=== PATIENT | female | born 1955 | race Hispanic/Latino ===

== ENCOUNTER → 2017-03-28 | Outpatient (CLI) | payer BC ==
--- NOTE | 2017-03-29 14:43 | MAM ---
EXAM DESCRIPTION: 3D Screening BILATERAL : Digital Mammography. CLINICAL HISTORY: 61 years Female SCREENING . No complaints. Sister with breast cancer. Postmenopausal. No HRT. COMPARISON: 2-D digital screening bilateral studies 03/29/2016 and 03/05/2015. Report from prior examination also reviewed. TECHNIQUE: Bilateral CC and MLO projection full-field images, 3-D tomosynthesis digital mammographic technique. Also bilateral synthesized CC/ MLO full-field images. CAD not utilized. FINDINGS: The breast parenchymal density pattern is: Scattered areas of fibroglandular density. No skin thickening or nipple retraction bilateral axillary lymph nodes. Bilateral intramammary lymph nodes. Bilateral solitary microcalcifications. No focal, stellate mass or density, focal asymmetry , and no suspicious microcalcifications bilaterally Stable mammograms compared to prior study, February 2015, taking into account differences in mammographic technique IMPRESSION: BI-RADS CATEGORY: 2 - BENIGN FINDINGS. FOLLOW UP: Routine digital bilateral screening, one year interval from March 2017 Written communication explaining the IMPRESSION and follow-up, will be mailed to the patient and referring health care provider. According to the [employer], yearly mammograms are recommended starting at age 40 and continuing as long as a woman is in good health. Any breast change noted on a breast self-exam should be reported promptly to the patient's healthcare provider. Breast MRI is recommended for women with an approximately 20-25% or greater lifetime risk of breast cancer, including women with a strong family history of breast or ovarian cancer and women who have been treated for Hodgkin's disease. A negative mammographic report should not delay tissue diagnosis in patients with significant clinical history or physical findings. Extremely dense breast tissue limits the sensitivity of digital mammography. Electronically signed by: Kvng Haile MD 03/29/2017 2:42 PM CDT
== END | disposition home or self-care (01) ==
LOC: MAMMO 15:08
PROVIDERS: ATTEND Obstetrics & Gynecology
DX: Z12.31 Encounter for screening mammogram for malignant neoplasm of breast (principal)
CPT/HCPCS: 77063; G0202

== ENCOUNTER → 2018-04-06 | Outpatient (CLI) | payer BC ==
--- NOTE | 2018-04-07 16:08 | MAM ---
EXAM DESCRIPTION: 3D Screening BILATERAL : Digital Mammography. CLINICAL HISTORY: 62 years Female SCREEN . No complaints or personal history of breast cancer. Sister with breast cancer. Postmenopausal 17 years. No childbirth. Taking HRT 5 or more years ago. Lifetime risk of developing breast cancer (Tyrer-Cuzick model)(%): 11.7. COMPARISON: Bilateral screening digital breast tomosynthesis 03/28/2017. TECHNIQUE: Bilateral CC and MLO projection full-field images, Digital tomosynthesis mammographic technique. Bilateral digital 2-D full-field MLO images. CAD not utilized. FINDINGS: The breast parenchymal density pattern is: Scattered areas of fibroglandular density. No skin thickening or nipple retraction. Bilateral axillary and intramammary lymph nodes. No new focal, stellate mass or density, focal asymmetry , and no suspicious microcalcifications bilaterally. Stable mammograms compared to prior study. IMPRESSION: Benign exam. BIRAD CATEGORY: 2 BENIGN FINDINGS. RECOMMENDATIONS: FOLLOW UP: Routine digital bilateral screening, one year interval from March 2018. Written communication explaining the IMPRESSION and follow-up, will be mailed to the patient and referring health care provider. According to the [employer], yearly mammograms are recommended starting at age 40 and continuing as long as a woman is in good health. Any breast change noted on a breast self-exam should be reported promptly to the patient's healthcare provider. Breast MRI is recommended for women with an approximately 20-25% or greater lifetime risk of breast cancer, including women with a strong family history of breast or ovarian cancer and women who have been treated for Hodgkin's disease. A negative mammographic report should not delay tissue diagnosis in patients with significant clinical history or physical findings. Extremely dense breast tissue limits the sensitivity of digital mammography. Electronically signed by: Kvng Haile MD 04/07/2018 4:07 PM CDT
== END ==
LOC: MAMMO 10:00
PROVIDERS: ATTEND Obstetrics & Gynecology
DX: Z12.31 Encounter for screening mammogram for malignant neoplasm of breast (principal)

== ENCOUNTER → 2018-09-28 | Outpatient (CLI) | payer BC | LOC: GMAJS 10:48 | PROVIDERS: ATTEND Physician Assistant | DX: G47.62 Sleep related leg cramps (principal); R25.2 Cramp and spasm ==

== ENCOUNTER → 2019-03-02 | Outpatient (CLI) | payer BC | LOC: GMAM 10:31 | PROVIDERS: ATTEND Family Medicine | DX: R94.5 Abnormal results of liver function studies (principal) ==

== ENCOUNTER → 2019-04-11 | Outpatient (CLI) | payer BC ==
--- NOTE | 2019-04-13 15:58 | MAM ---
EXAM DESCRIPTION: 3D Screening BILATERAL : Digital Mammography. CLINICAL HISTORY: 63 years Female ANNUAL SCREENING . No complaints or personal history of breast cancer. Female sibling with breast cancer. Menarche age 15. No childbirth. Postmenopausal 15+ years. HRT yes but unknown duration.. Lifetime risk of developing breast cancer (Tyrer-Cuzick model)(%): 8.4. COMPARISON: Bilateral screening digital breast tomosynthesis 06 April 2018 and 28 March 2017. TECHNIQUE: Bilateral CC and MLO projection full-field images, digital tomosynthesis mammographic technique. Bilateral digital 2-D full-field MLO images. CAD not available for tomosynthesis or 2-D images. FINDINGS: The breast parenchymal density pattern is: Scattered areas of fibroglandular density. No skin thickening or nipple retraction. Left axillary lymph nodes. Bilateral solitary microcalcifications. No new focal, stellate mass or density, focal asymmetry , and no suspicious microcalcifications bilaterally. Stable mammograms compared to prior study. IMPRESSION: Benign exam. BIRAD CATEGORY: 2 BENIGN FINDINGS. RECOMMENDATIONS: FOLLOW UP: Routine digital bilateral mammographic screening, one year interval from March 2019. Written communication explaining the IMPRESSION and follow-up, will be mailed to the patient and referring health care provider. According to the [employer], yearly mammograms are recommended starting at age 40 and continuing as long as a woman is in good health. Any breast change noted on a breast self-exam should be reported promptly to the patient's healthcare provider. Breast MRI is recommended for women with an approximately 20-25% or greater lifetime risk of breast cancer, including women with a strong family history of breast or ovarian cancer and women who have been treated for Hodgkin's disease. A negative mammographic report should not delay tissue diagnosis in patients with significant clinical history or physical findings. Extremely dense breast tissue limits the sensitivity of digital mammography. Electronically signed by: Kvng Haile MD 04/13/2019 3:56 PM CDT
== END ==
LOC: MAMMO 10:35
PROVIDERS: ATTEND Family Medicine
DX: Z12.31 Encounter for screening mammogram for malignant neoplasm of breast (principal)

== ENCOUNTER → 2020-01-02 | Outpatient (CLI) | payer BC ==
--- NOTE | 2020-01-02 11:38 | MRI ---
Study: MRI of the Left Knee. Indication: KNEE PAIN Technique: Multiplanar, multi sequence MRI of the left knee was obtained without intravenous contrast. Comparison: None. Findings: ACL, PCL intact. MCL is lax and bowed indicating sequela of a prior MCL sprain. No acute tear. IT band thickened distally with increased internal PD signal which can be seen with IT band friction. Remaining lateral collateral ligament complex structures intact. Scattered degenerative signal changes medial meniscus and lateral meniscus without tear. Discoid configuration lateral meniscus. Areas of grade 3 chondral thinning of the medial and lateral knee compartments noted with a dominant area of grade 4 chondrosis, cortical remodeling and subchondral marrow change at the lateral margin medial femoral condyle. The involved area measures approximately 5 mm transverse by 9 mm AP. Patellofemoral extensor mechanism intact. Patella normally located. Extensive grade 4 chondrosis patellar apex extending into the medial and lateral facets with areas of cortical remodeling subchondral marrow change. Similar appearing changes noted at the medial and midline femoral trochlea. Small knee effusion. No acute fracture. Impression: Scattered degenerative signal changes medial meniscus and lateral meniscus with discoid configuration lateral meniscus. No fluid-filled tear. Areas of grade 3 chondral thinning medial and lateral knee compartment with grade 4 chondrosis and subchondral marrow change of the lateral margin medial femoral condyle. Extensive areas of grade 4 chondrosis of the patellofemoral compartment as above. Small knee effusion. Additional findings as above. Electronically signed by: Mic Nguyen MD 01/02/2020 11:36 AM CDT
== END ==
LOC: MRI 07:09
PROVIDERS: ATTEND Family Medicine
DX: M17.12 Unilateral primary osteoarthritis, left knee (principal); M94.262 Chondromalacia, left knee; M25.462 Effusion, left knee

== ENCOUNTER → 2020-01-21 | Outpatient (CLI) | payer BC | LOC: GMAM 14:27 | PROVIDERS: ATTEND Family Medicine | DX: E55.9 Vitamin D deficiency, unspecified (principal); I10 Essential (primary) hypertension; R73.02 Impaired glucose tolerance (oral); E78.2 Mixed hyperlipidemia ==

== ENCOUNTER → 2020-02-05 | Outpatient (CLI) | payer BC ==
--- NOTE | 2020-02-06 08:19 | US ---
EXAM DESCRIPTION: Liver: ULTRASOUND. CLINICAL HISTORY: ABNORMAL RESULTS OF LIVER FUNCTION STUDIES COMPARISON: None. TECHNIQUE: Transabdominal scannin-dimensional and Doppler modes. FINDINGS: Gallbladder: Large gallbladder. No stones or sludge. No fluid around the gallbladder. No wall thickening. 2.5 mm. Non-tender with transducer pressure. Common bile duct: caliber 3.6 mm within normal limits. Liver: Increased echogenicity; contour liver capsule smooth where seen. No fluid around the liver. Intrahepatic biliary ducts normal caliber. Doppler hepatopedal flow portal vein. xxx Long axis right lobe 13.2 cm. Pancreas: normal size and echogenicity. Duct not seen. Right kidney: long axis measures 8.9 cm. Normal cortical echogenicity. Normal cortical thickness. No echogenic stones; no hydronephrosis. Aorta proximal: 1.6 cm normal caliber. IMPRESSION: 1. Hepatic steatosis with no enlargement. Otherwise unremarkable. Normal ultrasound of the pancreas. 2. Gallbladder and common bile duct are unremarkable. 3. Negative findings right kidney. Normal caliber proximal abdominal aorta. Electronically signed by: Kvng Haile MD 02/06/2020 8:17 AM CDT
== END | disposition home or self-care (01) ==
LOC: US 08:46
PROVIDERS: ATTEND Family Medicine
DX: R94.5 Abnormal results of liver function studies (principal)

== ENCOUNTER → 2020-04-02 | Outpatient (CLI) | payer MEDICARE | LOC: LAB.O 11:23 | PROVIDERS: ATTEND Internal Medicine Gastroenterology | DX: R94.5 Abnormal results of liver function studies (principal) ==

== ENCOUNTER → 2020-05-16 | Outpatient (CLI) | payer MEDICARE ==
--- NOTE | 2020-05-19 14:55 | MAM ---
EXAM DESCRIPTION: 3D Screening BILATERAL : Digital Mammography. CLINICAL HISTORY: 64 years Female SCREENING . No complaints. Sister with breast cancer at age 29. Menarche age 15. Childbirth [age]. Menopause age 45. HRT five or more years ago.. Lifetime risk of developing breast cancer (Tyrer-Cuzick model)(%): 13.3. COMPARISON: Bilateral screening digital breast tomosynthesis March 2019 and March 2018. TECHNIQUE: Bilateral CC and MLO projection full-field images, digital tomosynthesis mammographic technique. Bilateral digital 2-D full-field MLO images. CAD available for 2-D images. FINDINGS: The breast parenchymal density pattern is: Scattered areas of fibroglandular density. Solitary microcalcifications. Intramammary lymph nodes. Axillary nodes. No skin thickening or nipple retraction No new focal, stellate mass or density, focal asymmetry , and no suspicious microcalcifications bilaterally. Stable mammograms compared to prior study. IMPRESSION: Benign exam. BIRAD CATEGORY: 2 BENIGN FINDINGS. RECOMMENDATIONS: FOLLOW UP: Routine digital bilateral mammographic screening, one year interval from May 2020. Written communication explaining the IMPRESSION and follow-up, will be mailed to the patient and referring health care provider. According to the [employer], yearly mammograms are recommended starting at age 40 and continuing as long as a woman is in good health. Any breast change noted on a breast self-exam should be reported promptly to the patient's healthcare provider. Breast MRI is recommended for women with an approximately 20-25% or greater lifetime risk of breast cancer, including women with a strong family history of breast or ovarian cancer and women who have been treated for Hodgkin's disease. A negative mammographic report should not delay tissue diagnosis in patients with significant clinical history or physical findings. Extremely dense breast tissue limits the sensitivity of digital mammography. Electronically signed by: Kvng Haile MD 05/19/2020 2:54 PM [employer] TECH[employer]IC[employer]
== END ==
LOC: MAMMO 08:56
PROVIDERS: ATTEND Family Medicine
DX: Z12.31 Encounter for screening mammogram for malignant neoplasm of breast (principal)

== ENCOUNTER 2020-07-26 23:52 | Emergency (ER) | payer MEDICARE ==
[2020-07-27 00:13] VITALS: O2SAT 99
--- NOTE | 2020-07-27 00:49 | ED.PDOC ---
History of Present Illness - General Chief Complaint: Blood Pressure Problem Stated Complaint: high B/P at home Time Seen by Provider: 07/26/20 23:58 Source: patient, RN notes reviewed, Vital Signs reviewed Exam Limitations: no limitations - History of Present Illness Initial Comments: This is a 64-year-old female with history of hypertension, diabetes, hyperlipidemia presenting to the emergency department with elevated blood pressure readings today. She takes amlodipine 5 mg daily. She took her evening dose around 9 PM. She was recently taken off of lisinopril due to cough and believes her amlodipine dose may be too low. She states she had some mild heartburn earlier today, but has completely pain-free at this time. No chest pain, no abdominal pain, no shortness of breath, no neurologic symptoms. Allergies/Adverse Reactions: Allergies NO KNOWN ALLERGY Allergy (Verified 07/27/20 00:16) Home Medications: Ambulatory Orders Amlodipine Besylate 5 mg PO DAILY 07/27/20 Amlodipine Besylate 10 mg PO DAILY #30 tab 07/27/20 Metformin HCl [Metformin Hydrochloride E] 500 mg PO DAILY 07/27/20 Rosuvastatin Calcium 5 mg PO DAILY 07/27/20 Review of Systems - Review of Systems Constitutional: Denies: chills, fever EENTM: Denies: ear pain, nose congestion Respiratory: Denies: cough, short of breath Cardiology: States: other - Elevated blood pressure. Denies: chest pain, edema, palpitations Gastrointestinal/Abdominal: Denies: abdominal pain, diarrhea, nausea, vomiting Genitourinary: Denies: dysuria, hematuria Musculoskeletal: Denies: joint pain, joint swelling, muscle pain, muscle stiffness Skin: Denies: dryness, lesions, lumps, rash Neurological: Denies: headache, paresthesia, tingling, weakness Endocrine: Denies: excessive sweating, intolerance to cold, intolerance to heat Hematologic/Lymphatic: States: no symptoms reported Past Medical History (General) - Patient Medical History Hx Hypertension: Yes Hx Diabetes: Yes Surgical History: appendectomy - Vaccination History Hx Tetanus, Diphtheria Vaccination: No Hx Influenza Vaccination: No Hx Pneumococcal Vaccination: No - Social History Hx Tobacco Use: No Hx Alcohol Use: No Family Medical History - Family History Father Hx Family Hypertension: Yes Hx Family Stroke: Yes Physical Exam - Physical Exam General Appearance: Alert, Comfortable Ears, Nose, Throat: normal ENT inspection, normal pharynx Neck: non-tender, full range of motion, supple Respiratory: lungs clear, normal breath sounds, no respiratory distress, no accessory muscle use Cardiovascular/Chest: regular rate, rhythm, no edema, no gallop, no JVD Peripheral Pulses: radial,right: 2+, radial,left: 2+ Gastrointestinal/Abdominal: non tender, soft Back Exam: normal inspection, no vertebral tenderness Extremity: normal range of motion, non-tender, normal inspection, no pedal edema, no calf tenderness Neurologic: no motor/sensory deficits, alert, normal mood/affect, oriented x 3 Skin Exam: normal color, warm/dry Progress - Progress Progress: 07/27/20 00:48 Rechecked. BP now 158/70. Patient remains completely asymptomatic. Will increase amlodipine to 10 mg daily. Recommended follow-up with PCP in 3 to 5 days for recheck. Strict warnings given to return the emergency room for chest pain, shortness of breath, severe headaches, weakness/numbness/tingling, or any other concerns. MDM: Patient has asymptomatic hypertension. No indication for work-up at this time per [employer] policy. Addison Long DO [id number] Departure - Departure Clinical Impression: Asymptomatic hypertension Disposition: Discharge to Home or Self Care Condition: Fair Departure Forms: ED Discharge - Pt. Copy, Patient Portal Self Enrollment Instructions: DI for High Blood Pressure, High Blood Pressure (DC), Controlling Your Blood Pressure Through Lifestyle Diet: resume usual diet Activity: increase activity as tolerated Referrals: Juanpablo De Leon MD [Primary Care Provider] - 1-5 Days Prescriptions: Amlodipine Besylate 10 mg PO DAILY #30 tab Home Medications: Ambulatory Orders Amlodipine Besylate 5 mg PO DAILY 07/27/20 Amlodipine Besylate 10 mg PO DAILY #30 tab 07/27/20 Metformin HCl [Metformin Hydrochloride E] 500 mg PO DAILY 07/27/20 Rosuvastatin Calcium 5 mg PO DAILY 07/27/20
[2020-07-27 00:54] VITALS: BP 158/86; TEMP 97.9
== END 2020-07-27 00:58 | disposition home or self-care (01) ==
LOC: ER 23:52
DX: I10 Essential (primary) hypertension (principal); R00.0 Tachycardia, unspecified; E11.9 Type 2 diabetes mellitus without complications; E78.5 Hyperlipidemia, unspecified; Z79.899 Other long term (current) drug therapy; Z79.84 Long term (current) use of oral hypoglycemic drugs